=== PATIENT | male | born 1960 | race Caucasian/White ===

== ENCOUNTER 2018-06-14 08:48 | Outpatient (CLI) | payer OTHER | END 2018-06-14 08:49 | disposition home or self-care (01) | LOC: DTY/OP 08:48 | PROVIDERS: ATTEND Family Medicine | DX: E11.59 Type 2 diabetes mellitus with other circulatory complications (principal) | CPT/HCPCS: 97802 ==

== ENCOUNTER 2022-08-15 07:59 | Outpatient (CLI) | payer OTHER | END 2022-08-15 08:00 | disposition home or self-care (01) | LOC: ULT 07:59 | PROVIDERS: ATTEND Internal Medicine Cardiovascular Disease | DX: I25.10 Atherosclerotic heart disease of native coronary artery without angina pectoris (principal); I70.8 Atherosclerosis of other arteries | CPT/HCPCS: 93923 ==

== ENCOUNTER 2023-06-07 05:40 | Day surgery (SDC) | payer MEDICARE, OTHER ==
[2023-06-06 09:29] VITALS: BMI 35.2
[2023-06-07] MEDS ORDERED: Lidocaine 1% MPF 2 ML VIAL ONE (05:44)
[2023-06-07] MEDS ORDERED: Heparin 10,000 UNITS/ 10 ML VIAL ONE (06:13)
[2023-06-07] MEDS ORDERED: Lidocaine 1% (PF) 30 ML VIAL ONE (06:14)
[2023-06-07] MEDS ORDERED: Metoprolol Tartrate 5 MG (5 mL) VIAL ONE (06:14)
[2023-06-07] MEDS ORDERED: Nitroglycerin 50 MG/250 ML BOT 250 ML ONE (06:15)
[2023-06-07] MEDS ORDERED: fentaNYL 50 mcg/mL 1 mL Vial ONE (06:48)
[2023-06-07] MEDS ORDERED: Midazolam HCl 2 mg/2 ml Vial ONE (06:48)
[2023-06-07] MEDS ORDERED: diphenhydrAMINE 50 MG/ML VIAL ONE (07:32)
[2023-06-07] MEDS ORDERED: Nitroglycerin 2% Ointment 1 INCH/1 GM Packet ONE (07:44)
[2023-06-07] MEDS ORDERED: Morphine 2 MG/ML VIAL ONE (11:48)
[2023-06-07] MEDS ORDERED: hydrALAZINE 20 MG/ML VIAL SLOW IVP PRN (12:11)
[2023-06-07] MEDS ORDERED: Morphine 2 MG/ML VIAL SLOW IVP PRN (12:14)
[2023-06-07] MEDS ORDERED: Lisinopril 5 MG TAB PO SCH (12:15)
[2023-06-07] MEDS ORDERED: Amlodipine 5 MG TAB ONE (12:15)
[2023-06-07] MEDS ORDERED: Iopamidol 370 76% 100 ML VIAL ONE (13:19)
== END 2023-06-07 13:00 | disposition home or self-care (01) ==
LOC: CCL 05:40
PROVIDERS: ATTEND Internal Medicine Cardiovascular Disease
PROC: 4A023N7 Measurement of Cardiac Sampling and Pressure, Left Heart, Percutaneous Approach (ICD-10-PCS; principal; 2023-06-07)
PROC: B200YZZ Plain Radiography of Single Coronary Artery using Other Contrast (ICD-10-PCS; 2023-06-07)
DX: I25.118 Atherosclerotic heart disease of native coronary artery with other forms of angina pectoris (principal); I10 Essential (primary) hypertension; R60.0 Localized edema; K21.9 Gastro-esophageal reflux disease without esophagitis; E78.00 Pure hypercholesterolemia, unspecified; E11.59 Type 2 diabetes mellitus with other circulatory complications; I73.9 Peripheral vascular disease, unspecified; F17.210 Nicotine dependence, cigarettes, uncomplicated; Z79.82 Long term (current) use of aspirin; Z79.899 Other long term (current) drug therapy; Z95.5 Presence of coronary angioplasty implant and graft; Z79.84 Long term (current) use of oral hypoglycemic drugs
CPT/HCPCS: 82962; 93458; C1769 ×2; C1894; J3010; 36416; 99152; 99153; J1200; J1644; J2001; J2250; J2272; Q9967

== ENCOUNTER 2023-06-14 13:30 | Inpatient (IN) | payer MEDICARE, OTHER ==
[2023-06-14 11:19] LABS: Hematocrit 41.3 % (38.8-50.0); Hemoglobin 13.7 g/dL (13.5-17.5); Mean Corpuscular HGB CONC 33.2 g/dL (32.0-36.0); Mean Corpuscular Hemoglobin 28.2 pg (27.0-33.0); Mean Corpuscular Volume 85.2 fl (81.2-95.1); Mean Platelet Volume 9.1 fl (7.4-10.4); Platelet Count 239 10x3/uL (150-450); RBC Distribution Width 17.8 % (11.5-14.5); Red Blood Cell (RBC) Count 4.85 10x6/uL (4.32-5.72); White Blood Cell (WBC) Count 7.7 10x3/uL (3.5-10.5)
[2023-06-14 11:37] LABS: Anion Gap 15 mmol/L (10-20); BUN (Urea Nitrogen) 16 mg/dL (8.4-25.7); Calc. Creatinine Clearance 0 mL/min (70-130); Calcium 9.2 mg/dL (7.8-10.44); Carbon Dioxide 23 mmol/L (23-31); Chloride 107 mmol/L (98-107); Estimated GFR 95; Glucose 74 mg/dL (80-115); Sodium 141 mmol/L (136-145)
[2023-06-15] MEDS ORDERED: Albumin 5% 500 ML ONE (06:33)
[2023-06-15] MEDS ORDERED: PHENYLEPHRINE-NS 100 MCG/ML 10 ML SYRINGE ONE (06:52)
[2023-06-15] MEDS ORDERED: Midazolam HCl 2 mg/2 ml Vial ONE (06:56)
[2023-06-15] MEDS ORDERED: ePHEDrine Sulfate 50 MG/10 ML VIAL ONE (06:56)
[2023-06-15] MEDS ORDERED: Norepinephrine 4 MG/4 ML VIAL ONE (06:56)
[2023-06-15] MEDS ORDERED: Rocuronium Bromide 10 MG/ML (10ML VIAL) ONE ×2 (06:56→08:26)
[2023-06-15] MEDS ORDERED: CEFAZOLIN 1 GM VIAL ONE (06:56)
[2023-06-15] MEDS ORDERED: Lidocaine 2% PF 100 mg/5 ml Syringe ONE (06:56)
[2023-06-15] MEDS ORDERED: Fentanyl 250 MCG/5 ML VIAL ONE (06:56)
[2023-06-15] MEDS ORDERED: Lidocaine 2% PF 5 ML VIAL ONE (06:56)
[2023-06-15] MEDS ORDERED: PROPOFOL 20 ML ONE (06:56)
[2023-06-15] MEDS ORDERED: Heparin 10,000 UNITS/ 10 ML VIAL ONE (08:23)
[2023-06-15] MEDS ORDERED: Insulin Regular 300 UNITS/3 ML VIAL ONE (08:37)
[2023-06-15] MEDS ORDERED: Promethazine HCl 25 MG/ML VIAL IM PRN (11:18)
[2023-06-15] MEDS ORDERED: NOREPINEPHRINE 8 MG/250 ML-D5W 250 ML IVPB PRN (11:18)
[2023-06-15] MEDS ORDERED: Hetastarch 6% 500 ML 500 ML IVPB PRN (11:18)
[2023-06-15] MEDS ORDERED: DOPamine 400 MG/D5W 250 ML 250 ML IVPB PRN (11:18)
[2023-06-15] MEDS ORDERED: Albumin 5% 12.5 GM (250 mL) BOT IVPB PRN ×2 (11:18)
[2023-06-15] MEDS ORDERED: Bisacodyl 10 MG SUPP PR PRN (11:18)
[2023-06-15] MEDS ORDERED: Mag-Al 1200 mg/1200 mg/30 ML UDCUP PO PRN (11:18)
[2023-06-15] MEDS ORDERED: Bisacodyl 5 MG TAB PO PRN (11:18)
[2023-06-15] MEDS ORDERED: Dextrose 5% in Water 1,000 ML IV PRN (11:45)
[2023-06-15] MEDS ORDERED: Glucagon 1 MG/ML KIT SC PRN (11:45)
[2023-06-15] MEDS ORDERED: Dextrose 50% Abboject 50 ML SYRINGE SLOW IVP PRN (11:45)
[2023-06-15] MEDS: Morphine 2 MG/ML VIAL SLOW IVP PRN (11:52)
[2023-06-15] MEDS: Ketorolac Tromethamine 30 MG (1 mL) VIAL IVP SCH (11:52)
[2023-06-15] MEDS: Lactated Ringer's 1,000 ML IV SCH (11:52)
[2023-06-15 11:56] LABS: #Basophils 0.1 thou/uL (0.0-0.2); #Eosinphils 0.1 thou/uL (0.0-0.7); #Monocytes 0.9 thou/uL (0.11-0.59); #Neutrophils 8.8 thou/uL (1.40-6.50); %Basophils 0.5 % (0.0-1.0); %Eosinophils 1.2 % (0.0-10.0); %Lymphocytes 7.1 % (21.0-51.0); %Monocytes 8.1 % (0.0-10.0); Hematocrit 36.5 % (42.0-52.0); Hemoglobin 11.6 g/dL (14.0-18.0); Mean Corpuscular HGB CONC 31.8 g/dL (32.0-36.0); Mean Corpuscular Volume 88.2 fl (78.0-98.0); Mean Platelet Volume 9.1 fL (7.4-10.4); Platelet Count 155 10x3/uL (130-400); RBC Distribution Width 17.7 % (11.5-14.5); Red Blood Cell (RBC) Count 4.14 mill/uL (4.70-6.10); White Blood Cell (WBC) Count 10.7 10x3/uL (4.8-10.8)
[2023-06-15] MEDS: Nitroglycerin 50 MG/250 ML BOT 250 ML IVPB PRN (11:56)
[2023-06-15] MEDS: Insulin Regular 300 UNITS/3 ML VIAL SC PRN (11:56)
[2023-06-15 12:00] LABS: Base Excess (BEa) -6.6 mEq/L (-2.0 to +3.0); CO2 Tension 38.5 mmHg (35.0-45.0); Calcium, Ionized (arterial) 1.06 mmol/L (1.12-1.30); Carboxyhemoglobin (COHb) 1.2 gm% (0.0-3.0); Hematocrit-ABG 36 % (42.0-52.0); Hemoglobin (Hb) 12.2 g/dL (14.0-18.0); O2 Tension (PaO2), arterial 79.7 mmHg (> 80.0); Potassium - ABG Lab 4.03 mmol/L (3.70-5.30); pH, Arterial 7.312 (7.35-7.45)
[2023-06-15 12:11] LABS: ALV-art Gradient 299.975 mmHg (0-20); Puncture Site ALINE
[2023-06-15 12:11] LABS: INR-International Normal Ratio 1.3; Prothrombin Time 15.9 sec (12.0-14.7)
[2023-06-15] MEDS: niCARdipine 25 MG in Sodium Chloride 0.9% 250 ML 250 ML IVPB PRN (12:11)
[2023-06-15 12:12] LABS: PTT 31.4 sec (22.9-36.1)
[2023-06-15] MEDS: Post-Op Insulin Drip Protocol IVPB ONE (12:16)
[2023-06-15] MEDS: hydrALAZINE 20 MG/ML VIAL SLOW IVP PRN (12:18)
[2023-06-15] MEDS: Ondansetron PF 4 MG/2 ML Vial IVP PRN (12:31)
[2023-06-15 12:32] LABS: Anion Gap 9 mmol/L (10-20); BUN (Urea Nitrogen) 14 mg/dL (8.4-25.7); Calc. Creatinine Clearance 125 mL/min (70-130); Calcium 7.6 mg/dL (7.8-10.44); Carbon Dioxide 20 mmol/L (23-31); Chloride 114 mmol/L (98-107); Estimated GFR 96; Glucose 143 mg/dL (80-115); Potassium 4.3 mmol/L (3.5-5.1); Sodium 139 mmol/L (136-145)
[2023-06-15] MEDS: fentaNYL 50 mcg/mL 1 mL Vial SLOW IVP PRN ×2 (13:04→15:29)
[2023-06-15] MEDS: Ipratropium/Albuterol 3 ML NEB NEB PRN (13:08)
[2023-06-15] MEDS: CEFAZOLIN 2 GM in Sodium Chloride 0.9% 100 ML IVPB SCH (13:08)
[2023-06-15] MEDS: FLU VACC QS2023(65UP)/MF59C/PF 60 MCG/0.5 ML SYRINGE IM ONE (14:36)
[2023-06-15 15:03] LABS: Actual Bicarbonate (HCO3a) 18.5 mEq/L (22-28); Base Excess (BEa) -6.8 mEq/L (-2.0 to +3.0); CO2 Tension 36.2 mmHg (35.0-45.0); Calcium, Ionized (arterial) 1.07 mmol/L (1.12-1.30); Carboxyhemoglobin (COHb) 1.3 gm% (0.0-3.0); Hematocrit-ABG 37 % (42.0-52.0); Hemoglobin (Hb) 12.6 g/dL (14.0-18.0); O2 Tension (PaO2), arterial 73.2 mmHg (> 80.0); Potassium - ABG Lab 3.99 mmol/L (3.70-5.30); pH, Arterial 7.326 (7.35-7.45)
[2023-06-15 15:12] LABS: Puncture Site Arterial Line
[2023-06-15] MEDS: Guaifenesin DM 100-10/5 ML UDCUP PO PRN (15:30)
[2023-06-15] MEDS: HYDROcodone/Acetaminophen 5/325 mg Tablet PO PRN (15:33)
[2023-06-15] MEDS: HUMULIN R 100 UNITS in Sodium Chloride 0.9% 100 ML IVPB SCH (17:25)
[2023-06-15 19:23] LABS: Potassium 4.2 mmol/L (3.5-5.1)
[2023-06-15] MEDS: Famotidine/PF 20 mg/2ml Vial SLOW IVP SCH (20:34)
[2023-06-15] MEDS: Atorvastatin Calcium 20 MG TAB PO SCH (20:34)
[2023-06-16 04:18] LABS: #Basophils 0.1 thou/uL (0.0-0.2); #Neutrophils 9.4 thou/uL (1.40-6.50); %Basophils 0.4 % (0.0-1.0); %Eosinophils 0.1 % (0.0-10.0); %Lymphocytes 6.3 % (21.0-51.0); %Monocytes 8.8 % (0.0-10.0); Hematocrit 36.9 % (42.0-52.0); Hemoglobin 11.8 g/dL (14.0-18.0); Mean Corpuscular Hemoglobin 28.4 pg (27.0-31.0); Mean Corpuscular Volume 88.7 fl (78.0-98.0); Mean Platelet Volume 8.7 fL (7.4-10.4); Platelet Count 171 10x3/uL (130-400); RBC Distribution Width 17.7 % (11.5-14.5); Red Blood Cell (RBC) Count 4.16 mill/uL (4.70-6.10); White Blood Cell (WBC) Count 11.2 10x3/uL (4.8-10.8)
[2023-06-16 04:47] LABS: Anion Gap 10 mmol/L (10-20); BUN (Urea Nitrogen) 19 mg/dL (8.4-25.7); Calc. Creatinine Clearance 128 mL/min (70-130); Calcium 7.9 mg/dL (7.8-10.44); Carbon Dioxide 21 mmol/L (23-31); Chloride 113 mmol/L (98-107); Estimated GFR 96; Glucose 119 mg/dL (80-115); Sodium 140 mmol/L (136-145)
[2023-06-16] MEDS: HYDROcodone/Acetaminophen 5/325 mg Tablet PO PRN (05:33)
[2023-06-16] MEDS: Levothyroxine Sodium 112 MCG TAB PO SCH (05:33)
[2023-06-16] MEDS: Levothyroxine Sodium 25 MCG TAB PO SCH (05:34)
[2023-06-16] MEDS: Potassium Chloride 20 MEQ (100 mL) BAG IVPB PRN (06:39)
[2023-06-16] MEDS: Aspirin 325 MG TAB PO SCH (08:53)
[2023-06-16] MEDS: Empagliflozin 25 MG TAB PO SCH (08:53)
[2023-06-16] MEDS: Pioglitazone HCl 15 MG TAB PO SCH (08:54)
[2023-06-16] MEDS: Insulin Glargine 30 UNITS/0.3 ML VIAL SC SCH (08:54)
[2023-06-16] MEDS ORDERED: Non-Formulary Item 1 EACH (Levothyroxine Sodium [Synthroid] 137 MCG Tablet) PO SCH (09:00)
[2023-06-16] MEDS ORDERED: Insulin Glargine 30 UNITS/0.3 ML VIAL SC PRN (11:31)
[2023-06-16 13:08] VITALS: BMI 34.9
[2023-06-16] MEDS: Atorvastatin Calcium 40 MG TAB PO SCH (20:56)
[2023-06-16] MEDS: Nicotine 14 MG PATCH TOP SCH (21:00)
[2023-06-17 04:54] LABS: #Basophils 0.1 thou/uL (0.0-0.2); #Eosinphils 0.1 thou/uL (0.0-0.7); #Monocytes 1.1 thou/uL (0.11-0.59); #Neutrophils 7.4 thou/uL (1.40-6.50); %Basophils 0.5 % (0.0-1.0); %Eosinophils 1.4 % (0.0-10.0); %Lymphocytes 11.1 % (21.0-51.0); %Monocytes 11.3 % (0.0-10.0); %Neutrophils 74.9 % (42.0-75.0); Hemoglobin 10.9 g/dL (14.0-18.0); Mean Corpuscular HGB CONC 31.1 g/dL (32.0-36.0); Mean Corpuscular Hemoglobin 27.3 pg (27.0-31.0); Mean Corpuscular Volume 87.7 fl (78.0-98.0); Mean Platelet Volume 9.5 fL (7.4-10.4); Platelet Count 173 10x3/uL (130-400); Red Blood Cell (RBC) Count 3.99 mill/uL (4.70-6.10); White Blood Cell (WBC) Count 9.9 10x3/uL (4.8-10.8)
[2023-06-17 05:25] LABS: Anion Gap 10 mmol/L (10-20); BUN (Urea Nitrogen) 19 mg/dL (8.4-25.7); Calc. Creatinine Clearance 116 mL/min (70-130); Carbon Dioxide 24 mmol/L (23-31); Chloride 106 mmol/L (98-107); Potassium 3.7 mmol/L (3.5-5.1); Sodium 136 mmol/L (136-145)
[2023-06-17 05:26] LABS: Calcium 8.2 mg/dL (7.8-10.44); Estimated GFR 94; Glucose 137 mg/dL (80-115)
[2023-06-17] MEDS: Furosemide 20 MG (2 mL) VIAL SLOW IVP SCH (08:34)
[2023-06-17] MEDS: Ezetimibe 10 MG TAB PO SCH (09:10)
[2023-06-17] MEDS: Amlodipine 5 MG TAB PO SCH (09:11)
[2023-06-17] MEDS: Bisoprolol Fumarate 5 MG TAB PO SCH (09:21)
[2023-06-17] MEDS ORDERED: Zolpidem Tartrate 5 MG TAB PO PRN (10:19)
[2023-06-17] MEDS ORDERED: Artificial Tear Sol 15 ML BOT EA EYE PRN (10:19)
[2023-06-17] MEDS ORDERED: Mag-Al 1200 mg/1200 mg/30 ML UDCUP PO PRN (10:19)
[2023-06-17] MEDS ORDERED: diphenhydrAMINE 25 MG CAP PO PRN (10:19)
[2023-06-17] MEDS ORDERED: Mineral Oil ENEMA PR PRN (10:19)
[2023-06-17] MEDS ORDERED: Nitroglycerin 0.4 MG TAB (25 Tab Bottle) SL PRN (10:19)
[2023-06-17] MEDS ORDERED: Bisacodyl 10 MG SUPP PR PRN (10:19)
[2023-06-17] MEDS ORDERED: Bisacodyl 5 MG TAB PO PRN (10:19)
[2023-06-17] MEDS ORDERED: Communication Order-Pharmacy FS SCH (10:30)
[2023-06-17] MEDS: BuPROPion XL 150 MG ER.TAB PO SCH (20:22)
[2023-06-18 06:04] LABS: #Eosinphils 0.2 thou/uL (0.0-0.7); #Monocytes 0.9 thou/uL (0.11-0.59); #Neutrophils 6.9 thou/uL (1.40-6.50); %Basophils 0.4 % (0.0-1.0); %Eosinophils 2.5 % (0.0-10.0); %Lymphocytes 10.7 % (21.0-51.0); %Monocytes 10.2 % (0.0-10.0); %Neutrophils 75.5 % (42.0-75.0); Hematocrit 34.6 % (42.0-52.0); Hemoglobin 11.2 g/dL (14.0-18.0); Mean Corpuscular HGB CONC 32.4 g/dL (32.0-36.0); Mean Corpuscular Hemoglobin 28.4 pg (27.0-31.0); Mean Corpuscular Volume 87.6 fl (78.0-98.0); Mean Platelet Volume 9.3 fL (7.4-10.4); Platelet Count 194 10x3/uL (130-400); RBC Distribution Width 17.8 % (11.5-14.5); Red Blood Cell (RBC) Count 3.95 mill/uL (4.70-6.10); White Blood Cell (WBC) Count 9.2 10x3/uL (4.8-10.8)
[2023-06-18 06:25] LABS: Anion Gap 15 mmol/L (10-20); BUN (Urea Nitrogen) 18 mg/dL (8.4-25.7); Calc. Creatinine Clearance 123 mL/min (70-130); Calcium 8.8 mg/dL (7.8-10.44); Carbon Dioxide 23 mmol/L (23-31); Chloride 107 mmol/L (98-107); Estimated GFR 96; Glucose 109 mg/dL (80-115); Potassium 3.9 mmol/L (3.5-5.1); Sodium 141 mmol/L (136-145)
[2023-06-18] MEDS ORDERED: traMADol HCl 50 MG TAB PO PRN (09:05)
[2023-06-18] MEDS: Amlodipine 5 MG TAB PO SCH (09:44)
[2023-06-18] MEDS: Varenicline Tartrate 0.5 MG TAB PO SCH (09:49)
[2023-06-18] MEDS: BuPROPion XL 150 MG ER.TAB PO SCH (09:49)
[2023-06-18] MEDS: Bisoprolol Fumarate 5 MG TAB PO SCH (12:38)
[2023-06-18] MEDS: Acetaminophen 325 MG TAB PO PRN (21:57)
[2023-06-19 05:37] LABS: #Basophils 0.1 thou/uL (0.0-0.2); #Eosinphils 0.3 thou/uL (0.0-0.7); #Monocytes 1.1 thou/uL (0.11-0.59); #Neutrophils 5.3 thou/uL (1.40-6.50); %Basophils 0.8 % (0.0-1.0); %Eosinophils 4.2 % (0.0-10.0); %Lymphocytes 13.3 % (21.0-51.0); %Monocytes 14.3 % (0.0-10.0); %Neutrophils 66.5 % (42.0-75.0); Hematocrit 33.4 % (42.0-52.0); Hemoglobin 10.6 g/dL (14.0-18.0); Mean Corpuscular HGB CONC 31.7 g/dL (32.0-36.0); Mean Corpuscular Hemoglobin 27.7 pg (27.0-31.0); Mean Corpuscular Volume 87.2 fl (78.0-98.0); Mean Platelet Volume 9.5 fL (7.4-10.4); Platelet Count 213 10x3/uL (130-400); RBC Distribution Width 17.6 % (11.5-14.5); Red Blood Cell (RBC) Count 3.83 mill/uL (4.70-6.10); White Blood Cell (WBC) Count 7.9 10x3/uL (4.8-10.8)
[2023-06-19 06:44] LABS: Anion Gap 11 mmol/L (10-20); BUN (Urea Nitrogen) 22 mg/dL (8.4-25.7); Calc. Creatinine Clearance 106 mL/min (70-130); Calcium 8.6 mg/dL (7.8-10.44); Carbon Dioxide 24 mmol/L (23-31); Chloride 110 mmol/L (98-107); Estimated GFR 85; Glucose 142 mg/dL (80-115); Potassium 4.2 mmol/L (3.5-5.1); Sodium 141 mmol/L (136-145)
[2023-06-19] MEDS: Furosemide 40 MG TAB PO SCH (08:57)
[2023-06-19] MEDS: Potassium Chloride 10 MEQ TAB PO SCH (08:57)
[2023-06-19] MEDS: Bisoprolol Fumarate 5 MG TAB PO SCH (08:58)
[2023-06-19 10:33] VITALS: BP 133/63; TEMP 98.6
== END 2023-06-19 10:33 | disposition home or self-care (01) | DRG 236 ==
LOC: SURG A 06-15 06:22 → CCU 06-15 11:16 → 2NO 06-17 15:57
PROVIDERS: ADMIT Thoracic Surgery (Cardiothoracic Vascular Surgery); ATTEND Thoracic Surgery (Cardiothoracic Vascular Surgery)
PROC: 02100Z9 Bypass Coronary Artery, One Artery from Left Internal Mammary, Open Approach (ICD-10-PCS; principal; 2023-06-15)
PROC: 021109W Bypass Coronary Artery, Two Arteries from Aorta with Autologous Venous Tissue, Open Approach (ICD-10-PCS; 2023-06-15)
PROC: 06BQ4ZZ Excision of Left Saphenous Vein, Percutaneous Endoscopic Approach (ICD-10-PCS; 2023-06-15)
PROC: 02L70CK Occlusion of Left Atrial Appendage with Extraluminal Device, Open Approach (ICD-10-PCS; 2023-06-15)
PROC: 5A1221Z Performance of Cardiac Output, Continuous (ICD-10-PCS; 2023-06-15)
DX: I25.10 Atherosclerotic heart disease of native coronary artery without angina pectoris (principal); I10 Essential (primary) hypertension; E78.5 Hyperlipidemia, unspecified; I73.9 Peripheral vascular disease, unspecified; E11.9 Type 2 diabetes mellitus without complications; E03.9 Hypothyroidism, unspecified; E66.9 Obesity, unspecified; F17.210 Nicotine dependence, cigarettes, uncomplicated; Z95.9 Presence of cardiac and vascular implant and graft, unspecified; I25.2 Old myocardial infarction; Z68.34 Body mass index [BMI] 34.0-34.9, adult; Z79.4 Long term (current) use of insulin; Z79.899 Other long term (current) drug therapy
CPT/HCPCS: 36415; 36416; 71045; 80048; 82805; 82947; 85025; 85027; 85610; 85730; 86850; 86900; 86901; 93005; 93010; 93798; 94002; 94640; A4311; A4648; C1751; C1889; J0360; J0690; J1642; J1644; J1815; J1885; J1940; J2001; J2250; J2272; J2405; J2704; J3010; J3480; J3490; J7050; J7120; J7620; P9045; S0028

== ENCOUNTER 2023-09-25 12:31 | Outpatient (CLI) | payer MEDICARE, OTHER ==
[~2023-09-25 12:31] MED LIST: Iopamidol 370 76% 100 ML VIAL ONE
== END 2023-09-25 12:32 | disposition home or self-care (01) ==
LOC: CT 12:31
PROVIDERS: ATTEND Internal Medicine Cardiovascular Disease
DX: I65.23 Occlusion and stenosis of bilateral carotid arteries (principal)
CPT/HCPCS: 70498; 82565

== ENCOUNTER 2025-01-28 13:00 | Outpatient (CLI) | payer MEDICARE | END 2025-01-28 13:01 | disposition home or self-care (01) | LOC: CT 13:00 | PROVIDERS: ATTEND Nurse Practitioner Family | DX: I65.23 Occlusion and stenosis of bilateral carotid arteries (principal) | CPT/HCPCS: 70498; Q9967 ==